=== PATIENT | male | born 1960 | race Caucasian/White ===

== ENCOUNTER 2016-12-22 12:09 | Emergency (ER) | payer OTHER ==
[2016-12-22 14:06] LABS: HEMOGLOBIN 14.8 gm/dl (14.0-17.5); RED BLOOD COUNT 4.62 M/UL (4.20-5.50)
== END 2016-12-22 17:55 | disposition left against medical advice (07) ==
LOC: ER1 12:09
PROVIDERS: Student in an Organized Health Care Education/Training Program
DX: R07.9 Chest pain, unspecified (principal); R05 Cough; I10 Essential (primary) hypertension
CPT/HCPCS: 71010; 80053; 82550; 82553; 83874; 83880; 84484; 85025; 93005; 99285